=== PATIENT | female | born 1995 | race African-American/Black ===

== ENCOUNTER 2017-12-04 08:34 | Inpatient (IN) | payer MEDICAID ==
[~2017-12-04] VITALS: Ht 157.5 cm; Wt 52.0 kg
[2017-12-04] MEDS ORDERED: INSLAN SQ ×2 (08:46→18:19)
[2017-12-04 09:04] LABS: GLUCOSE,POINT OF CARE 267 MG/DL (70-110)
[2017-12-04] MEDS ORDERED: KETOROLAC TROMETHAMINE 30 MG/ML VIAL IVP ONE (09:15)
[2017-12-04 10:21] LABS: BASOPHILS % (AUTO) 0.4 % (0.0-2.0); EOSINOPHILS % (AUTO) 0.2 % (1.0-6.0); HEMATOCRIT 35.6 % (36-46); HEMOGLOBIN 11.7 g/dL (12.0-16.0); LYMPHOCYTES # (AUTO) 1.1 K/uL (1.0-4.8); LYMPHOCYTES % (AUTO) 9.2 % (22.0-44.0); MEAN CORPUSCULAR HEMOGLOBIN 28.6 pg (26.0-34.0); MEAN CORPUSCULAR HGB CONC 32.9 G/dL (31.0-37.0); MEAN CORPUSCULAR VOLUME 87 fL (80-100); MONOCYTES # (AUTO) 0.4 K/uL (0.1-1.0); MONOCYTES % (AUTO) 3.7 % (2.0-9.0); NEUTROPHILS # (AUTO) 10.5 K/uL (1.8-7.7); NEUTROPHILS % (AUTO) 86.5 % (40.0-70.0); PLATELET COUNT (AUTO) 323 K/uL (150-450); RED CELL DISTRIBUTION WIDTH 14.4 % (11.5-14.5)
[2017-12-04] MEDS ORDERED: ONDANSETRON HCL 4 MG/2 ML VIAL IVP ONE (12:00)
[2017-12-04] MEDS ORDERED: LIDOCAINE/PF 2% 5 ML VIAL INJ ONE (12:00)
[2017-12-04] MEDS ORDERED: PROPOFOL 1% 20 ML VIAL IVP ONE (12:00)
[2017-12-04] MEDS ORDERED: SUCCINYLCHOLINE CHLORIDE 20 MG/ML 10 ML VIAL IVP ONE (12:00)
[2017-12-04] MEDS ORDERED: RINGERS SOLUTION,LACTATED 1,000 ML IV ONE ×2 (14:15→14:30)
[2017-12-04 14:34] LABS: GLUCOMETER DEV NAME(LOC) SDS 5; GLUCOSE,POINT OF CARE 259 MG/DL (70-110)
[2017-12-04] MEDS ORDERED: CARBOPROST TROMETHAMINE 250 MCG/ML AMP IM ONE (15:36)
[2017-12-04] MEDS ORDERED: HYDROmorphone 2 MG/ML SYRINGE IVP PRN (16:30)
[2017-12-04] MEDS ORDERED: MEPERIDINE HCL/PF 25 MG/0.5 ML AMP IVP PRN (16:30)
[2017-12-04] MEDS ORDERED: FentaNYL CITRATE-PF 100 MCG/2 ML VIAL IVP PRN (16:30)
[2017-12-04] MEDS ORDERED: IBUP-2070 PO (17:31)
[2017-12-04 18:03] VITALS: BP 93/49
[2017-12-04] MEDS ORDERED: IBUP-1506 PO ×3 (18:11→18:18)
[2017-12-04] MEDS ORDERED: MIDAZOLAM HCL 2 MG/2 ML VIAL IVP ONE (19:32)
[2017-12-04] MEDS ORDERED: FentaNYL CITRATE-PF 100 MCG/2 ML VIAL IVP ONE (19:32)
[2017-12-04] MEDS ORDERED: OXYGEN THERAPY IH SCH (20:00)
[2017-12-05 02:38] LABS: GLUCOMETER DEV NAME(LOC) PV 4E2; GLUCOSE,POINT OF CARE 207 MG/DL (70-110)
[2017-12-05] MEDS ORDERED: INSULIN GLARGINE,HUM.REC.ANLOG 100 UNITS/ML SQ SCH (09:00)
== END 2017-12-04 19:33 | disposition home or self-care (01) | DRG 544 ==
LOC: EMS 08:35 → 4E 12:41
PROVIDERS: ADMIT Obstetrics & Gynecology; ATTEND Obstetrics & Gynecology
PROC: 10D17ZZ Extraction of Products of Conception, Retained, Via Natural or Artificial Opening (ICD-10-PCS; principal; 2017-12-04 15:00)
DX: O03.4 Incomplete spontaneous abortion without complication (principal); E10.9 Type 1 diabetes mellitus without complications
CPT/HCPCS: 76801; 76817; 82948; 88305; 96374; 99285; J0330; J1815; J1885; J2250; J2405; J2704; J3010; J3490; J7120